=== PATIENT | female | born 1980 | race Caucasian/White ===

== ENCOUNTER 2017-11-02 08:20 | Outpatient (CLI) | payer MEDICAID | END 2017-11-02 08:21 | disposition home or self-care (01) | LOC: BICMAMMO 08:20 | PROVIDERS: ATTEND Family Medicine | DX: N64.4 Mastodynia (principal); N63.10 Unspecified lump in the right breast, unspecified quadrant | CPT/HCPCS: 77066; G0279 ==

== ENCOUNTER 2019-03-22 09:28 | Outpatient (CLI) | payer MEDICAID ==
--- NOTE | 2019-03-22 10:19 | MMO ---
Bilateral MAMMO Bilat Diag [facility]. CLINICAL HISTORY: Patient is 38 years old and is seen for diagnostic exam. The patient has the following family history of breast cancer: cousin female, at age 30. The patient has no personal history of cancer. VIEWS: The views performed were: bilateral craniocaudal with tomosynthesis; bilateral mediolateral oblique with tomosynthesis; and bilateral mediolateral with tomosynthesis. FILMS COMPARED: The present examination has been compared to prior imaging studies performed at [facility] on 11/02/2017, 05/07/2018 and 03/22/2019. MAMMOGRAM FINDINGS: There are scattered fibroglandular densities. There is a stable asymmetry seen in the CC view only seen in the right breast. This appears less conspicuous than on priors. No concerning sonographic abnormality. There are no suspicious masses, suspicious calcifications, or new areas of architectural distortion. IMPRESSION: THERE IS NO MAMMOGRAPHIC EVIDENCE OF MALIGNANCY. A ROUTINE FOLLOW-UP MAMMOGRAM AT AGE 40 IS RECOMMENDED. THE RESULTS OF THIS EXAM WERE SENT TO THE PATIENT. ACR BI-RADS Category 2 - Benign finding MAMMOGRAPHY NOTE: 1. A negative mammogram report should not delay a biopsy if a dominant of clinically suspicious mass is present. 2. Approximately 10% to 15% of breast cancers are not detected by mammography. 3. Adenosis and dense breasts may obscure an underlying neoplasm. Reported by: DOROTHY MADDOX MD Electonically Signed: [id number]
--- NOTE | 2019-03-22 10:32 | ULT ---
LIMITED RIGHT BREAST ULTRASOUND: Date: 03-22-19 Provided Clinical History: Right breast mass. FINDINGS: Limited sonographic interrogation of the right breast was performed at the 11 o'clock position in the region of prior sonographic concern. There is a stable benign area of diminished echogenicity at the 11 o'clock position of the right breast. No concerning sonographic findings are evident. IMPRESSION: BIRADS category 2 - benign findings. Return to annual screening mammography recommended. POS: OFF
== END 2019-03-22 09:29 | disposition home or self-care (01) ==
LOC: BICMAMMO 09:28
PROVIDERS: ATTEND Family Medicine
DX: R92.8 Other abnormal and inconclusive findings on diagnostic imaging of breast (principal); Z80.3 Family history of malignant neoplasm of breast
CPT/HCPCS: 77066; G0279